=== PATIENT | male | born 1980 | race Caucasian/White ===

== ENCOUNTER 2022-04-20 19:25 | Emergency (ER) | payer BC, SELFPAY ==
--- NOTE | 2022-04-20 19:31 | ED.URI ---
HPI - URI/Sore Throat General Chief Complaint: Upper Respiratory Infection Stated Complaint: Sore Throat Time Seen by Provider: 04/20/22 19:31 Source: patient and RN notes reviewed History of Present Illness HPI Narrative: Patient is a 42-year-old male who presents the urgent care with complaints of a sore throat since Sunday. Patient states he recently had strep and he does have a history of [id number] strep. Patient was on amoxicillin a couple weeks ago and states he did not know to change out his toothbrush. Patient denies of any fevers, nausea or vomiting. Patient has been taking Advil. Denies of any other upper respiratory complaints or ill exposures. No acute distress noted. Patient aware of the plan of care. Some parts of this dictation were generated by voice recognition software and may contain typographical and/or grammatical inaccuracies. Related Data Home Medications Medication Instructions Recorded Confirmed emtricitabine 200 mg-tenofovir tablet 04/20/22 disoproxil fumarate 300 mg tablet Allergies Allergy/AdvReac Type Severity Reaction Status Date / Time No Known Allergies Allergy Verified 04/20/22 19:38 Review of Systems Review of Systems: CONSTITUTIONAL: Denies fever, chills, or sweats. EYES: Denies visual changes, redness, or discharge. ENT: Denies rhinorrhea, congestion, or otalgia. Reports of sore throat CARDIOVASCULAR: Denies chest pain, palpitations, or edema. RESPIRATORY: Denies cough or dyspnea. GASTROINTESTINAL: Denies abdominal pain, nausea, vomiting, or diarrhea. GENITOURINARY: Denies dysuria or hematuria. SKIN: Denies rash or itching. MUSCULOSKELETAL: Denies back pain, joint pain, or myalgia. NEUROLOGIC: Denies headache, numbness, or weakness. All other systems reviewed are negative, except as documented in HPI. PMFSH Comments At the time of my signature, I reviewed and agree with the nursing past medical, surgical, social, and family history. There is no relevant family history pertinent to the patient complaint. Exam Narrative: GENERAL: This is a well-nourished, well-developed patient, in no apparent distress. HEAD: normocephalic, atraumatic. EYES: PERRL. Sclera clear/white. Vision is grossly intact. EARS: External ears normal, auditory canals clear and without drainage, TMs normal without perforation. Hearing grossly intact. NOSE: External nose normal with no obvious nasal discharge, nares without redness, no rhinorrhea. THROAT: Mucous membranes moist, moderate erythema noted posterior pharynx with right exudate with moderate postnasal drainage NECK: Neck supple CARDIOVASCULAR: Regular rate and rhythm without murmurs, gallops, or rubs. RESPIRATORY: Clear to auscultation. Breath sounds equal bilaterally. No wheezes, rales, or rhonchi. SKIN: warm, intact with no suspicious lesions or rash, good texture and turgor. NEURO: awake, alert, and oriented to person, place and time. There were no obvious focal neurologic abnormalities. EXTREMITIES: No clubbing, cyanosis, or edema. Course Course Level of Care: Express Care Visit Vital Signs Vital signs: Vital Signs Temperature 98.3 F 04/20/22 19:34 Pulse Rate 85 04/20/22 19:34 Respiratory Rate 14 04/20/22 19:34 Blood Pressure 120/64 04/20/22 19:34 Pulse Oximetry 97 04/20/22 19:34 Oxygen Delivery Room Air 04/20/22 19:34 Temperature 98.3 F 04/20/22 19:34 Pulse Rate 85 04/20/22 19:34 Respiratory Rate 14 04/20/22 19:34 Blood Pressure 120/64 04/20/22 19:34 Pulse Oximetry 97 04/20/22 19:34 Oxygen Delivery Room Air 04/20/22 19:34 Reviewed MDM - URI/Sore Throat MDM Narrative Medical decision making narrative: Advised the patient to complete the oral antibiotic regimen as prescribed. Consider yourself contagious for up to 24 hours after starting the oral antibiotic. Be sure to change her toothbrush out within 2 days. Use Tylenol/ibuprofen as needed. Increase your water intake. May
[2022-04-20 19:34] VITALS: BP 120/64; PULSE 85; RESP 14; TEMP 36.8; O2SAT 97
== END 2022-04-20 19:46 | disposition home or self-care (01) ==
PROVIDERS: Emergency Provider Nurse Practitioner Family
DX: J02.9 Acute pharyngitis, unspecified (principal)
CPT/HCPCS: 87081; 87147; 99213; G0463